=== PATIENT | female | born 1975 | race Asian ===

== ENCOUNTER 2018-11-14 13:14 | Inpatient (IN) | payer BC ==
[~2018-11-14] VITALS: Ht 154.9 cm; Wt 90.7 kg
[2018-11-14] MEDS ORDERED: OXYTOCIN/0.9 % SODIUM CHLORIDE 1,000 ML IV SCH (14:14)
[2018-11-14] MEDS ORDERED: LR 1,000 ML IV ONE (14:14)
[2018-11-14] MEDS ORDERED: TERBUTALINE SULFATE 1 MG/ML VIAL SUBCUT ONE (14:15)
[2018-11-14] MEDS ORDERED: DINOPROSTONE 10 MG SUPP VG ONE (14:15)
[2018-11-14] MEDS ORDERED: NALBUPHINE HCL 10 MG/ML AMP IVP PRN (14:15)
[2018-11-14 14:47] LABS: BASOPHILS % (AUTO) 0.3 % (0.0-2.0); EOSINOPHILS # (AUTO) 0.2 K/uL (0.0-0.4); EOSINOPHILS % (AUTO) 1.6 % (0.0-4.0); HEMOGLOBIN 11.8 g/dL (12.0-16.0); LYMPHOCYTES # (AUTO) 1.5 K/uL (1.0-5.5); LYMPHOCYTES % (AUTO) 12.4 % (20.5-51.5); MEAN CORPUSCULAR HEMOGLOBIN 25 pg (27-31); MEAN CORPUSCULAR HGB CONC 32 % (32-36); MEAN CORPUSCULAR VOLUME 78 fL (79.0-98.0); MONOCYTES # (AUTO) 0.6 K/uL (0.0-1.0); MONOCYTES % (AUTO) 5.1 % (1.7-9.3); NEUTROPHILS # (AUTO) 10.1 K/uL (1.8-7.7); NEUTROPHILS % (AUTO) 80.6 % (40.0-70.0); PLATELET COUNT (AUTO) 250 K/uL (130-430); RED BLOOD CELL COUNT(AUTO) 4.76 MIL/uL (4.2-6.2); RED CELL DISTRIBUTION WIDTH 15.3 % (9.0-15.0); WHITE BLOOD COUNT (AUTO) 12.5 K/uL (4.8-10.8)
[2018-11-14] MEDS: LR 1,000 ML IV SCH (15:55)
[2018-11-14 16:40] VITALS: BP_SYST 130
[2018-11-15] MEDS: LEVOTHYROXINE SODIUM 0.05 MG TABLET PO SCH (07:46)
[2018-11-15] MEDS: LR 1,000 ML IV SCH ×3 (09:15→23:16)
[2018-11-15] MEDS ORDERED: fentaNYL CITRATE/PF 100 MCG/2 ML AMP ONE (21:49)
[2018-11-15] MEDS ORDERED: ROPIVACAINE 0.2% 100 ML ONE (21:49)
[2018-11-15] MEDS ORDERED: LR 500 ML IV ONE (22:23)
[2018-11-15] MEDS ORDERED: fentaNYL CITRATE/PF 100 MCG/2 ML AMP EP ONE (22:30)
[2018-11-15] MEDS ORDERED: ePHEDrine sulfate 50 MG/ML VIAL IVP PRN (22:30)
[2018-11-15] MEDS ORDERED: FENT2mCg/mL-ROPIVA0.2%/NS EPID 100 ML EP SCH (22:30)
[2018-11-16] MEDS ORDERED: AMPICILLIN SODIUM 2 GM in NS 100 ML IV SCH (05:00)
[2018-11-16] MEDS ORDERED: AMPICILLIN SODIUM 2 GM VIAL ONE (05:02)
[2018-11-16] MEDS ORDERED: ACETAMINOPHEN 325 MG TABLET ONE (06:12)
[2018-11-16] MEDS ORDERED: ACETAMINOPHEN 325 MG TABLET PO PRN (06:45)
[2018-11-16] MEDS ORDERED: ROPIVACAINE 0.2% 100 ML ONE (07:50)
[2018-11-16] MEDS ORDERED: CEFAZOLIN 2 GM IVPB PREMIX 50 ML IV ONE (08:15)
[2018-11-16] MEDS ORDERED: OXYTOCIN/0.9 % SODIUM CHLORIDE 1,000 ML IV SCH (11:01)
[2018-11-16] MEDS ORDERED: OXYTOCIN/0.9 % SODIUM CHLORIDE 1,000 ML IV ONE (11:01)
[2018-11-16 11:05] VITALS: BP_SYST 122
[2018-11-16] MEDS ORDERED: RHO(D) IMMUNE GLOBULIN/MALTOSE 1500 UNITS/1.3 ML (WINHRO) IM PRN (11:15)
[2018-11-16] MEDS ORDERED: OXYCODONE/ACETAMINOPHEN 5-325 TABLET PO PRN (11:15)
[2018-11-16] MEDS ORDERED: LANOLIN 7 GM OINT. TP PRN (11:15)
[2018-11-16] MEDS ORDERED: HYDROCORTISONE 0.5%, 28.35 GM TOPICAL CREAM TP PRN (11:15)
[2018-11-16] MEDS ORDERED: DOCUSATE SODIUM 100 MG CAPSULE PO PRN (11:15)
[2018-11-16] MEDS ORDERED: DIPH-TET-PERTUS Vaccine 0.5 ML VIAL (ADACEL) I.M. PRN (11:15)
[2018-11-16] MEDS ORDERED: WITCH HAZEL LEAF 1 MED.PAD MED.PAD TP PRN (11:15)
[2018-11-16] MEDS ORDERED: SENNOSIDES/DOCUSATE SODIUM 1 TAB TABLET(SENOKOT-S) PO PRN (11:15)
[2018-11-16] MEDS ORDERED: ONDANSETRON HCL 4 MG/2 ML VIAL IVP PRN (11:15)
[2018-11-16] MEDS ORDERED: MORPHINE PCA 50 mg/50 mL NS IV PRN (11:15)
[2018-11-16] MEDS ORDERED: DERMOPLAST SPRAY TP PRN (11:15)
[2018-11-16] MEDS ORDERED: HYDROcodone/ACETAMIN 5-325 MG TAB (NORCO/ VICODIN) PO PRN (11:15)
[2018-11-16] MEDS ORDERED: NALOXONE HCL 0.4 MG/ML AMP (NARCAN) IVP PRN ×2 (11:15)
[2018-11-16] MEDS ORDERED: ANUSOL 1 EA SUPP.RECT (PREPARATION H) RC PRN (11:15)
[2018-11-16] MEDS ORDERED: MORPHINE PCA 50 mg/50 mL NS 50 ML IV ONE (12:04)
[2018-11-16] MEDS: KETOROLAC TROMETHAMINE 30 MG VIAL IVP SCH ×2 (16:03→22:00)
[2018-11-16] MEDS: CEFAZOLIN 1 GM IVPB PREMIX 50 ML IV SCH ×2 (16:03→22:35)
[2018-11-16] MEDS ORDERED: TEMAZEPAM 15 MG CAPSULE PO PRN (21:00)
[2018-11-17] MEDS: KETOROLAC TROMETHAMINE 30 MG VIAL IVP SCH ×2 (04:19→10:00)
[2018-11-17] MEDS: CEFAZOLIN 1 GM IVPB PREMIX 50 ML IV SCH (04:21)
[2018-11-17] MEDS ORDERED: COMMUNICATION ORDER XX ONE (06:40)
[2018-11-17 06:56] LABS: BASOPHILS % (AUTO) 0.3 % (0.0-2.0); EOSINOPHILS # (AUTO) 0.2 K/uL (0.0-0.4); EOSINOPHILS % (AUTO) 1.1 % (0.0-4.0); HEMATOCRIT 27.4 % (36-48); HEMOGLOBIN 8.8 g/dL (12.0-16.0); LYMPHOCYTES # (AUTO) 1.8 K/uL (1.0-5.5); LYMPHOCYTES % (AUTO) 9.6 % (20.5-51.5); MEAN CORPUSCULAR HEMOGLOBIN 25 pg (27-31); MEAN CORPUSCULAR HGB CONC 32 % (32-36); MEAN CORPUSCULAR VOLUME 78 fL (79.0-98.0); MONOCYTES % (AUTO) 5.2 % (1.7-9.3); NEUTROPHILS # (AUTO) 15.7 K/uL (1.8-7.7); NEUTROPHILS % (AUTO) 83.8 % (40.0-70.0); PLATELET COUNT (AUTO) 214 K/uL (130-430); RED BLOOD CELL COUNT(AUTO) 3.51 MIL/uL (4.2-6.2); RED CELL DISTRIBUTION WIDTH 15.5 % (9.0-15.0); WHITE BLOOD COUNT (AUTO) 18.7 K/uL (4.8-10.8)
[2018-11-17] MEDS: LEVOTHYROXINE SODIUM 0.05 MG TABLET PO SCH (07:21)
[2018-11-17] MEDS: IBUPROFEN 600 MG TABLET PO SCH ×3 (12:00→23:43)
[2018-11-17] MEDS ORDERED: IBUPROFEN 600 MG TABLET PO SCH (18:00)
[2018-11-18] MEDS: IBUPROFEN 600 MG TABLET PO SCH ×3 (06:09→23:58)
[2018-11-18] MEDS: LEVOTHYROXINE SODIUM 0.05 MG TABLET PO SCH (06:49)
[2018-11-18] MEDS: SIMETHICONE 80 MG TAB.CHEW PO PRN ×3 (06:57→18:30)
[2018-11-19] MEDS: IBUPROFEN 600 MG TABLET PO SCH ×4 (02:00→16:52)
[2018-11-19] MEDS: LEVOTHYROXINE SODIUM 0.05 MG TABLET PO SCH (06:40)
[2018-11-19] MEDS: OXYCODONE/ACETAMINOPHEN 5-325 TABLET PO PRN ×2 (06:43→16:52)
[2018-11-19] MEDS: SIMETHICONE 80 MG TAB.CHEW PO PRN ×2 (09:36→14:17)
== END 2018-11-19 18:00 | disposition home or self-care (01) | DRG 788 ==
LOC: SPU 13:14
PROVIDERS: ADMIT Specialist; ATTEND Specialist
PROC: 10D00Z1 Extraction of Products of Conception, Low, Open Approach (ICD-10-PCS; principal; 2018-11-18)
DX: O41.03X0 Oligohydramnios, third trimester, not applicable or unspecified (principal); Z3A.38 38 weeks gestation of pregnancy; Z37.0 Single live birth; O99.214 Obesity complicating childbirth; O33.9 Maternal care for disproportion, unspecified; O62.2 Other uterine inertia; O24.429 Gestational diabetes mellitus in childbirth, unspecified control; O99.284 Endocrine, nutritional and metabolic diseases complicating childbirth; E03.9 Hypothyroidism, unspecified
CPT/HCPCS: 36415; 81002-TC; 85025; 86592; 86886; 86900; 86901; 94760; J0290; J0690; J1885; J2270; J2300; J2590; J2795; J3010; J7120